=== PATIENT | female | born 1980 | race Caucasian/White ===

== ENCOUNTER 2017-01-28 21:25 | Emergency (ER) | payer OTHER ==
[2017-01-28] MEDS ORDERED: Morphine INJ* 4 MG/ML 1 ML SYRINGE IV ONE (22:16)
[2017-01-28] MEDS ORDERED: Ondansetron INJ* 2 MG/ML VIAL ONE (22:20)
[2017-01-28] MEDS ORDERED: Ondansetron INJ* 2 MG/ML VIAL IV ONE (22:29)
[2017-01-28 22:55] LABS: Hematocrit 38 % (35-47); Hemoglobin 12.9 g/dl (12.0-16.0); Mean Corpuscular HGB Conc 34 g/dl (31-36); Mean Corpuscular Hemoglobin 31 pg (27-31); Mean Corpuscular Volume 90 fL (80-97); Mean Platelet Volume 9 um3 (7.4-10.4); Red Blood Count 4.19 10^6/ul (4.0-5.4); Red Cell Distribution Width 13 % (10.5-15); White Blood Count 8.1 10^3/ul (3.5-10.8)
[2017-01-28 23:11] LABS: ALT 16 U/L (7-52); AST 21 U/L (13-39); Albumin 4.5 g/dL (3.2-5.2); Alkaline Phosphatase 60 U/L (34-104); Anion Gap 6 mmol/L (2-11); BUN/Creatinine Ratio 17.2 (8-20); Blood Urea Nitrogen 15 mg/dL (6-24); C Reactive Protein 1.68 mg/L (< 5.00); CO2 Carbon Dioxide 27 mmol/L (22-32); Calcium 9.5 mg/dL (8.6-10.3); Chloride 104 mmol/L (101-111); EGFR African American 94.2 (>60); EGFR Non-African American 73.3 (>60); Globulin 2.7 g/dL (2-4); Glucose 103 mg/dL (70-100); Potassium 3.6 mmol/L (3.5-5.0); Sodium 137 mmol/L (133-145); Total Protein 7.2 g/dL (6.4-8.9)
[2017-01-28] MEDS ORDERED: Ketorolac INJ* 30 MG/ML 1 ML VIAL IV PUSH ONE (23:57)
[2017-01-29] MEDS ORDERED: Ketorolac TAB * 10 MG TAB PO ONE (03:12)
[2017-01-29] MEDS ORDERED: Ketorolac TAB * 10 MG TAB PO PRN (03:13)
[2017-01-29 04:32] VITALS: BP 118/72
--- NOTE | 2017-01-29 07:18 | RAD ---
INDICATION: Left lower extremity pain. COMPARISON: There are no prior studies available for comparison. TECHNIQUE: Multiple real-time, color flow and Doppler tracings of the left lower extremity were obtained. FINDINGS: The common femoral, femoral, profunda femoral and popliteal veins all demonstrate normal compressibility, augmentation with compression and phasic response with respiration. The posterior tibial and peroneal veins demonstrate normal compressibility and augmentation with compression. Compression images in the calf are limited by the patient's pain tolerance. IMPRESSION: SLIGHTLY LIMITED STUDY, NO EVIDENCE FOR DEEP VENOUS THROMBOSIS.
--- NOTE | 2017-01-29 07:22 | RAD ---
INDICATION: Sudden onset acute pain while dancing. COMPARISON: There are no prior studies available for comparison. TECHNIQUE: Multiple real-time images of the left ankle, Achilles tendon region were obtained. In addition comparison images of the right ankle were obtained. FINDINGS: The left Achilles tendon appears intact without evidence for tear or tendinosis. No muscle abnormalities are seen. IMPRESSION: NEGATIVE EXAM.
--- NOTE | 2017-01-29 10:11 | ED ---
Mick Woods Thomas, scribed for Renée Valdez MD on 01/28/17 at 2200 . Lower Extremity - HPI Summary HPI Summary: The pt is a 36 y/o F presenting to the ED c/o left lower extremity pain that began today at 21:00. The pain is located in her left calf and the pain began suddenly when she was dancing and jumped. The pain is located in her calf and radiates in to her thigh. She describes a feeling that it felt like somebody kicked my calf, and she has been unable to walk since the pain began. The pt rates the pain 8/10. The pain is aggravated by weight bearing and palpation. The pain is alleviated by nothing. She has not treated this pain with anything CLOTH BALER. Pt additionally c/o tingling (to the sole of her L foot). Pt denies any other complaints. PMHx: hypothyroidism, DDD in her back. PSHx: tubal ligation, appendectomy, bone marrow harvest. SHx: no smoking, occasional drinking. FHx: when asked, she responds none. NMP 01/18/17. She denies a history of blood clots. She reports drinking some alcohol tonight. - History of Current Complaint Chief Complaint: EDExtremityLower Stated Complaint: LEG INJURY Time Seen by Provider: 01/28/17 21:42 Hx Obtained From: Patient Mechanism Of Injury: Unknown - although she was dancing when the pain began suddently Onset of Pain: Immediate Onset/Duration: Still Present - today at 21:00 Severity Initially: Severe Severity Currently: Severe Pain Intensity: 8 Pain Scale Used: 0-10 Numeric Timing: Constant Location: Is Discrete @ - left mid calf Character Of Pain: Sharp, Burning Associated Signs And Symptoms: Positive: Other - POS: tingling (to bottom of L foot). Negative: Fever Aggravating Factor(s): Ambulation, Movement, Weight Bearing, Other - POS: palpation Alleviating Factor(s): Nothing Able to Bear Weight: No - Allergies/Home Medications Allergies/Adverse Reactions: Allergies Allergy/AdvReac Type Severity Reaction Status Date / Time No Known Allergies Allergy Verified 01/28/17 21:29 PMH/Surg Hx/FS Hx/Imm Hx Previously Healthy: No Endocrine/Hematology History: Reports: Other Endocrine/Hematological Disorders - Hx hypothyroidism Musculoskeletal History: Reports: Other Musculoskeletal History - Hx DDD to back - Surgical History Surgery Procedure, Year, and Place: Tubal ligation, appendectomy, bone marrow harvest Infectious Disease History: No Infectious Disease History: Denies: Traveled Outside the [place] in Last 30 Days - Family History Known Family History: Positive: Other - pt states no known fam hx when asked - Social History Lives: With Family Alcohol Use: Occasionally Alcohol Amount: She reports some alcohol use tonight Hx Tobacco Use: No Smoking Status (MU): Never Smoked Tobacco Review of Systems Negative: Fever Cardiovascular: Negative Respiratory: Negative Positive: Other - POS: L lower extremity pain (calf, 01/16, sudden onset today at 21:00) Skin: Negative Neurological: Other - POS: tingling (sole of L foot) All Other Systems Reviewed And Are Negative: Yes Physical Exam Triage Information Reviewed: Yes Vital Signs On Initial Exam: Initial Vitals Temp Pulse Resp BP Pulse Ox 98.7 F 105 18 124/93 97 01/28/17 21:26 01/28/17 21:26 01/28/17 21:26 01/28/17 21:26 01/28/17 21:26 Vital Signs Reviewed: Yes Appearance: Positive: Well-Appearing, Well-Nourished, Pain Distress Skin: Positive: Warm, Skin Color Reflects Adequate Perfusion Head/Face: Positive: Normal Head/Face Inspection Eyes: Positive: Conjunctiva Clear ENT: Positive: Normal ENT inspection Neck: Positive: Supple Respiratory/Lung Sounds: Positive: Clear to Auscultation, Breath Sounds Present , Other - No respiratory distress Cardiovascular: Positive: RRR, Pulses are Symmetrical in both Upper and Lower Extremities, Other - Brisk cap refill. Negative: Murmur Abdomen Description: Positive: Nontender, Soft Bowel Sounds: Positive: Present Musculoskeletal: Positive: Limited @ - left calf and foot, Pain @ - Left mid calf, Other - [place] test diminished on left compared to right. No definite step off or gap in left Achilles. Sensation and distal pulses intact. Neurological: Positive: Alert, Oriented to Person Place, Time, Facial Symmetry, Speech Normal, Other - Muscle tone normal Psychiatric: Positive: Normal Procedures - Splinting Location: left lower extremity Hand-Made Type: orthoglass Splint: Posterior Pre-Proc Neuro Vasc Exam: normal Post-Proc Neuro Vasc Exam: normal Diagnostics - Vital Signs Vital Signs Temp Pulse Resp BP Pulse Ox 01/28/17 21:57 101 97 01/28/17 21:30 98.7 F 105 18 124/93 97 01/28/17 21:26 98.7 F 105 18 124/93 97 - Laboratory Lab Results: Lab Results 01/28/17 01/28/17 01/28/17 Range/Units 22:38 22:38 22:38 WBC 8.1 (3.5-10.8) 10^3/ul RBC 4.19 (4.0-5.4) 10^6/ul Hgb 12.9 (12.0-16.0) g/dl Hct 38 (35-47) % MCV 90 (80-97) fL MCH 31 (27-31) pg MCHC 34 (31-36) g/dl RDW 13 (10.5-15) % Plt Count 237 (150-450) 10^3/ul MPV 9 (7.4-10.4) um3 Neut % (Auto) 55.8 (38-83) % Lymph % (Auto) 33.8 (25-47) % Ellis % (Auto) 7.9 (1-9) % Eos % (Auto) 1.9 (0-6) % Baso % (Auto) 0.6 (0-2) % Absolute Neuts (auto) 4.5 (1.5-7.7) 10^3/ul Absolute Lymphs (auto) 2.7 (1.0-4.8) 10^3/ul Absolute Monos (auto) 0.6 (0-0.8) 10^3/ul Absolute Eos (auto) 0.2 (0-0.6) 10^3/ul Absolute Basos (auto) 0 (0-0.2) 10^3/ul Absolute Nucleated RBC 0 10^3/ul Nucleated RBC % 0 INR (Anticoag Therapy) 0.86 L (0.89-1.11) Sodium 137 (133-145) mmol/L Potassium 3.6 (3.5-5.0) mmol/L Chloride 104 (101-111) mmol/L Carbon Dioxide 27 (22-32) mmol/L Anion Gap 6 (2-11) mmol/L BUN 15 (6-24) mg/dL Creatinine 0.87 (0.51-0.95) mg/dL Est GFR ( Amer) 94.2 (>60) Est GFR (Non-Af Amer) 73.3 (>60) BUN/Creatinine Ratio 17.2 (8-20) Glucose 103 H (70-100) mg/dL Calcium 9.5 (8.6-10.3) mg/dL Total Bilirubin 0.30 (0.2-1.0) mg/dL AST 21 (13-39) U/L ALT 16 (7-52) U/L Alkaline Phosphatase 60 (34-104) U/L C-Reactive Protein 1.68 (< 5.00) mg/L Total Protein 7.2 (6.4-8.9) g/dL Albumin 4.5 (3.2-5.2) g/dL Globulin 2.7 (2-4) g/dL Albumin/Globulin Ratio 1.7 (1-3) Beta HCG, Quant < 0.60 mIU/mL Result Diagrams: 01/28/17 22:38 01/28/17 22:38 Lab Statement: Any lab studies that have been ordered have been reviewed, and results considered in the medical decision making process. - Additional Comments Diagnostic Additional Comments: US Venous Doppler. Interpreted by radiologist. Impression: No evidence for DVT LLE. US Lower Extremity Nonvascular. Interpreted by radiologist. Impression: unremarkable L Achilles tendon, symmetric with right side. No focal hypervascularity. no mass-like retracted tendon fibers. Re-Evaluation - Re-Evaluation First Eval Re-Evaluation Time: 02:15 Change: Unchanged Comment: Her is in the room. She was informed the results of the imaging. She would like to go forward with a CT scan. Pt feels that imaging did not examine her area of pain. Second Eval Re-Evaluation Time: 02:34 Change: Unchanged Comment: Patient was instructed of the plans for follow up with Dr. Paredes in the am for further evaluatio and treatment. Lower Extremity Course/Dx - Diagnoses Differential Diagnosis/HQI/PQRI: Positive: Contusion, Fracture (Closed), Tendonitis, Other - tendon rupture, DVT Provider Diagnoses: Acute pain of left lower extremity - Physician Notifications Discussed Care Of Patient With: Milena Paredes Time Discussed With Above Provider: 02:20 Instructed by Provider To: Other - have pt go to office at 0800. CT not indicated. Will order MRI if needed. Discharge - Discharge Plan Condition: Stable Disposition: HOME Prescriptions: Ketorolac TAB * [Toradol TAB *] 10 mg PO Q6H #20 tab Patient Education Materials: Leg Pain (ED) Referrals: Milena Paredes MD [Medical Doctor] - Additional Instructions: Your last dose of toradol was at midnight, 30mg IV. You may take your next dose of 10mg po anytime after 0600. Go to Dr[address] Paredes's office ([facility]) at 0800 and she will see you. Use the crutches and do not bear weight until advised by the orthopedist. RETURN TO THE EMERGENCY DEPARTMENT FOR ANY NEW OR WORSENING SYMPTOMS The documentation as recorded by the Mick stoll Thomas accurately reflects the service I personally performed and the decisions made by , Renée Valdez MD.
== END 2017-01-29 03:45 | disposition home or self-care (01) ==
LOC: ED 21:25
DX: M79.605 Pain in left leg (principal)
CPT/HCPCS: 36415; 80053; 84702; 85025; 85610; 86140; 96374; 96375; 99285; J1885; J2270; J2405